=== PATIENT | female | born 1995 | race Caucasian/White ===

== ENCOUNTER 2018-03-27 06:43 | Emergency (ER) | payer SELFPAY ==
[~2018-03-27] VITALS: Ht 157.5 cm; Wt 61.2 kg
[2018-03-27 06:55] VITALS: BP 143/99
[2018-03-27] MEDS ORDERED: Hydrogen Peroxide 473ml Bottle TOPIC ONE (07:30)
[2018-03-27] MEDS ORDERED: Bacitracin Oint 15gm Tube TOPIC ONE (07:45)
[2018-03-27] MEDS ORDERED: Tylenol #3 tab (300mg/30mg) ORAL ONE (07:45)
[2018-03-27] MEDS ORDERED: Clindamycin 150mg cap ORAL ONE (08:15)
[2018-03-27] MEDS ORDERED: Tetanus/Diptheria/Pertussis Vaccine 0.5ml Syr IM ONE (08:15)
[2018-03-27] MEDS ORDERED: BACITRACIN15 GM TOPIC (08:30)
[2018-03-27] MEDS ORDERED: CLINDAMYCIN HC300 MG ORAL (08:30)
[2018-03-27] MEDS ORDERED: TYLENOL EXTRA500 MG ORAL (08:30)
[2018-03-27 09:46] VITALS: BP 143/99
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
== END 2018-03-27 09:47 | disposition home or self-care (01) ==
LOC: EMR 07:54
DX: S41.011A Laceration without foreign body of right shoulder, initial encounter (principal); S51.012A Laceration without foreign body of left elbow, initial encounter; S81.812A Laceration without foreign body, left lower leg, initial encounter; S11.91XA Laceration without foreign body of unspecified part of neck, initial encounter; S21.119A Laceration without foreign body of unspecified front wall of thorax without penetration into thoracic cavity, initial encounter; X99.1XXA Assault by knife, initial encounter; Y92.89 Other specified places as the place of occurrence of the external cause; Z23 Encounter for immunization; Z88.0 Allergy status to penicillin
CPT/HCPCS: 90471; 90715; 99284

== ENCOUNTER 2018-04-03 22:37 | Emergency (ER) | payer SELFPAY ==
[~2018-04-03] VITALS: Ht 157.5 cm; Wt 61.2 kg
[~2018-04-03 22:37] MED LIST: BACITRACIN15 GM TOPIC; CLINDAMYCIN HC300 MG ORAL; TYLENOL EXTRA500 MG ORAL
[2018-04-03] MEDS ORDERED: NKM (22:49)
[2018-04-03 22:58] VITALS: BP 120/75
[2018-04-03 23:04] LABS: APPEARANCE,URINE CLEAR; BILIRUBIN, URINE NEGATIVE (NEGATIVE); COLOR,URINE PALE YELLOW; GLUCOSE, URINE (UA) NEGATIVE (NEGATIVE); KETONES,URINE NEGATIVE (NEGATIVE); LEUKOCYTE ESTERASE ,URINE 1+ (NEGATIVE); NITRITE,URINE NEGATIVE (NEGATIVE); PH,URINE 8 (4.5-8.0); PROTEIN,URINE 1+ (NEGATIVE); UROBILINOGEN,URINE 1 MG/DL (0.0-1.0)
[2018-04-03] MEDS ORDERED: BACTRIM DS TAB1 EAC1 ORAL (23:42)
[2018-04-03] MEDS ORDERED: PHENAZOPYRIDIN100 MG ORAL (23:42)
--- NOTE | 2018-04-03 23:45 | Emergency Room Report ---
History of Present Illness General Chief Complaint: Abdominal Pain Source: Patient Present Illness HPI Patient present with complaints of suprapubic discomfort Ongoing for the past 2-3 days also feels that she is urinating more frequently was some burning sensation denies any upper abdominal pain Denies any fevers or chills Denies any flank pain denies any chest pain or shortness of breath At the time of disposition patient also reports sutures that she has in place from a week ago from an unknown facility asking regarding removal of the sutures Allergies: Coded Allergies: AMOXICILLIN (Verified Allergy, Unknown, 03/27/18) PENICILLINS (Verified Allergy, Unknown, 03/27/18) Patient History Past Medical History: see triage record Pertinent Family History: none Last Menstrual Period: 03/01/18 Now: No : 1 Para: 0 Reviewed Nursing Documentation: PMH: Agreed; PSxH: Agreed Nursing Documentation-PMH Past Medical History: No Stated History Review of Systems All Other Systems: negative except mentioned in HPI Physical Exam Vital Signs Date Time Temp Pulse Resp B/P (MAP) Pulse Ox O2 Delivery O2 Flow Rate FiO2 04/03/18 22:46 98.4 64 14 120/75 97 Room Air 98.4 Sp02 EP Interpretation: reviewed, normal General Appearance: well appearing, no apparent distress Head: normocephalic, atraumatic Eyes: bilateral eye PERRL, bilateral eye EOMI ENT: hearing grossly normal, normal pharynx, TMs + canals normal, uvula midline Neck: full range of motion, supple, no meningismus, no bony tend Respiratory: lungs clear, normal breath sounds, no rhonchi, no respiratory distress, no retraction, no accessory muscle use Cardiovascular #1: normal peripheral pulses, regular rate, rhythm, no edema, no gallop, no JVD, no murmur Gastrointestinal: normal bowel sounds, non tender, soft, no mass, no organomegaly, non-distended, no guarding, no hernia, no pulsatile mass, no rebound Genitourinary: no CVA tenderness Musculoskeletal: normal inspection Neurologic: oriented x3, responsive, feather shaper III-XII nml as tested, motor strength/ tone normal, sensory intact Psychiatric: mood/affect normal Skin: normal color, no rash, warm/dry, palpation normal, other - [address] in the right upper shoulder, one suture in the left forearm all areas appear to be healed Lymphatic: normal inspection, no adenopathy Procedures Additional Procedure Procedure Narrative Suture removal The areas in the right shoulder were cleansed, there are [address] area appears to have fully healed, these were removed in the usual fashion with scissors and forceps, there was one suture in the left forearm, this was also removed in the usual fashion without any complications no dehiscence and patient tolerated well, Medical Decision Making Diagnostic Impression: Primary Impression: uti Additional Impression: suture removal ER Course With the patient's history and examination, multiple differentials considered, including but not limited to , ectopic , ovarian torsion, gastritis, cholecystitis, pancreatitis, appendicitis Patient's exam otherwise is more consistent with bladder infection given the urine sample that is obtained. Patient remains nontender in the right lower quadrant on repeat exam test was negative patient had sutures removed as noted above and stable for initial conservative outpatient trial Labs Test 04/03/18 23:03 Urine Color Pale yellow Urine Appearance Clear Urine pH 8 (4.5-8.0) Urine Specific [place] 1.015 (1.005-1.035) Urine Protein 1+ (NEGATIVE) Urine Glucose (UA) Negative (NEGATIVE) Urine Ketones Negative (NEGATIVE) Urine Occult Blood 2+ (NEGATIVE) Urine Nitrite Negative (NEGATIVE) Urine Bilirubin Negative (NEGATIVE) Urine Urobilinogen 1 MG/DL (0.0-1.0) Urine Leukocyte Esterase 1+ (NEGATIVE) Urine RBC 15-20 /HPF (0 - 2) Urine WBC 15-20 /HPF (0 - 2) Urine Squamous Epithelial Cells Moderate /LPF (NONE/OCC) Urine Bacteria Moderate /HPF (NONE) Urine HCG, Qualitative Negative (NEGATIVE) Last Vital Signs Date Time Temp Pulse Resp B/P (MAP) Pulse Ox O2 Delivery O2 Flow Rate FiO2 04/03/18 22:58 98.4 64 14 120/75 97 Room Air 98.4 Status: improved Disposition: HOME, SELF-CARE Condition: Improved Scripts Phenazopyridine Hcl* (PYRIDIUM*) 100 Mg Tablet 100 MG ORAL THREE TIMES A DAY, #9 TAB Prov: Nicole Ren DO 04/03/18 Trimethoprim/Sulfamethoxazole 160/800* (BACTRIM DS TABLET*) 1 Each Tablet 1 TAB ORAL Q12H, #14 TAB 0 Refills Prov: Nicole Ren DO 04/03/18 Referrals: NOT CHOSEN IPA/MD,REFERRING (PCP) Patient Instructions: Urinary Tract Infection, [id number], Suture Removal, Care After Additional Instructions: Patient is provided with the discharge instructions notified to follow up with primary doctor in the next 2-3 days otherwise return to the er with any worsening symptoms. Please note that this report is being documented using DRAGON technology. This can lead to erroneous entry secondary to incorrect interpretation by the dictating instrument. Nicole Ren DO Apr 03, 2018 23:45
[2018-04-04 00:09] VITALS: BP 118/60
[2018-04-04 00:11] VITALS: BP 118/60
== END 2018-04-04 00:11 | disposition home or self-care (01) ==
LOC: EMR 23:05
DX: N39.0 Urinary tract infection, site not specified (principal); Z48.02 Encounter for removal of sutures; Z88.0 Allergy status to penicillin
CPT/HCPCS: 81003; 81025; 87086; 87181; 99283

== ENCOUNTER 2018-04-23 09:51 | Emergency (ER) | payer SELFPAY ==
[~2018-04-23] VITALS: Ht 157.5 cm; Wt 61.2 kg
[~2018-04-23 09:51] MED LIST changes: +BACTRIM DS TAB1 EAC1 ORAL; +NKM; +PHENAZOPYRIDIN100 MG ORAL
[2018-04-23 11:18] LABS: APPEARANCE,URINE CLEAR; BILIRUBIN, URINE NEGATIVE (NEGATIVE); GLUCOSE, URINE (UA) NEGATIVE (NEGATIVE); KETONES,URINE NEGATIVE (NEGATIVE); LEUKOCYTE ESTERASE ,URINE 1+ (NEGATIVE); NITRITE,URINE NEGATIVE (NEGATIVE); PH,URINE 7 (4.5-8.0); PROTEIN,URINE 1+ (NEGATIVE); UROBILINOGEN,URINE 8 MG/DL (0.0-1.0)
[2018-04-23 11:26] VITALS: BP 134/84
[2018-04-23 11:26] LABS: COLOR,URINE YELLOW
[2018-04-23 11:41] LABS: BASOPHILS % (AUTO) 1.4 % (0.0-2.0); EOSINOPHILS % (AUTO) 1.4 % (0.0-3.0); HEMATOCRIT 46.6 % (37.0-47.0); HEMOGLOBIN 16.2 G/DL (12.0-16.0); LYMPHOCYTES % (AUTO) 39.6 % (20.0-45.0); MEAN CORPUSCULAR VOLUME 92 FL (80-99); NEUTROPHILS % (AUTO) 49.7 % (45.0-75.0); PLATELET COUNT 353 K/UL (150-450); RED BLOOD COUNT 5.09 M/UL (4.20-5.40); RED CELL DISTRIBUTION WIDTH 11.5 % (11.6-14.8); WHITE BLOOD COUNT 8.9 K/UL (4.8-10.8)
[2018-04-23 11:55] LABS: ANION GAP 14 mmol/L (5-15); BLOOD UREA NITROGEN 10 mg/dL (7-18); CALCIUM 10.5 MG/DL (8.5-10.1); CARBON DIOXIDE 27 MMOL/L (21-32); CHLORIDE 100 MMOL/L (98-107); POTASSIUM 3.8 MMOL/L (3.5-5.1); SODIUM 141 MMOL/L (136-145)
[2018-04-23 12:04] LABS: ALANINE AMINOTRANSFERASE 18 U/L (12-78); ALBUMIN 4.9 G/DL (3.4-5.0); ALBUMIN/GLOBULIN RATIO 1.2 (1.0-2.7); ALKALINE PHOSPHATASE 80 U/L (46-116); ASPARTATE AMINO TRANSFERASE 18 U/L (15-37); BILIRUBIN,TOTAL 2.8 MG/DL (0.2-1.0)
--- NOTE | 2018-04-23 12:11 | Diagnostic Imaging Report ---
EXAM: CT Head Without Intravenous Contrast CLINICAL HISTORY: AMS TECHNIQUE: Axial computed tomography images of the head/brain without intravenous contrast. CTDI is 70.38 mGy and DLP is 1293 mGy-cm. One or more of the following dose reduction techniques were used: automated exposure control, adjustment of the mA and/or kV according to patient size, use of iterative reconstruction technique. COMPARISON: No relevant prior studies available. FINDINGS: Brain: Unremarkable. No hemorrhage. No significant white matter disease. No edema. Ventricles: Unremarkable. No ventriculomegaly. Bones/joints: Unremarkable. No acute fracture. Soft tissues: Unremarkable. Sinuses: Unremarkable as visualized. No acute sinusitis. Mastoid air cells: Unremarkable as visualized. No mastoid effusion. IMPRESSION: Normal head/brain CT.
[2018-04-23 12:21] LABS: BILIRUBIN,DIRECT 0.4 MG/DL (0.0-0.3)
[2018-04-23] MEDS ORDERED: METROGEL-VAGINA70 G1 VAGIN (13:24)
[2018-04-23] MEDS ORDERED: DOXYCYCLINE MO100 MG ORAL (13:24)
[2018-04-23] MEDS ORDERED: TRUVADA1 TAB ORAL (13:24)
[2018-04-23] MEDS ORDERED: Azithromycin 250mg tab ORAL ONE (13:30)
[2018-04-23 14:20] VITALS: BP 134/84
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
== END 2018-04-23 14:20 | disposition home or self-care (01) ==
LOC: EMR 10:56
DX: T76.21XA Adult sexual abuse, suspected, initial encounter (principal); A64 Unspecified sexually transmitted disease; Z88.0 Allergy status to penicillin; Z88.1 Allergy status to other antibiotic agents
CPT/HCPCS: 36415; 70450; 80053; 81003; 81025; 82248; 83690; 85025; 99284

== ENCOUNTER 2018-08-23 20:35 | Emergency (ER) | payer SELFPAY ==
[~2018-08-23] VITALS: Ht 157.5 cm; Wt 54.4 kg
[~2018-08-23 20:35] MED LIST changes: +DOXYCYCLINE MO100 MG ORAL; +METROGEL-VAGINA70 G1 VAGIN; +TRUVADA1 TAB ORAL
[2018-08-23 21:00] VITALS: BP 137/81
[2018-08-23 21:18] LABS: APPEARANCE,URINE CLOUDY; BILIRUBIN, URINE NEGATIVE (NEGATIVE); GLUCOSE, URINE (UA) NEGATIVE (NEGATIVE); KETONES,URINE NEGATIVE (NEGATIVE); LEUKOCYTE ESTERASE ,URINE 1+ (NEGATIVE); NITRITE,URINE NEGATIVE (NEGATIVE); PH,URINE 6.5 (4.5-8.0); PROTEIN,URINE NEGATIVE (NEGATIVE); UROBILINOGEN,URINE NORMAL MG/DL (0.0-1.0)
[2018-08-23 21:20] LABS: COLOR,URINE COLORLESS
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
[2018-08-23] MEDS ORDERED: MACROBID100 MG ORAL (21:33)
[2018-08-23] MEDS ORDERED: IBUPROFEN600 MG ORAL (21:33)
[2018-08-23 21:40] VITALS: BP 126/76
== END 2018-08-23 23:02 | disposition home or self-care (01) ==
LOC: EMR 21:48
DX: R10.2 Pelvic and perineal pain (principal); N30.00 Acute cystitis without hematuria; Z88.0 Allergy status to penicillin; Z88.8 Allergy status to other drugs, medicaments and biological substances; F17.200 Nicotine dependence, unspecified, uncomplicated
CPT/HCPCS: 36415; 80307; 81003; 81025; 86850; 86900; 86901; 87086; 99283